=== PATIENT | male | born 1965 | race Caucasian/White ===

== ENCOUNTER 2016-04-30 16:24 | Emergency (ER) | payer OTHER ==
[2016-04-30 16:58] VITALS: BP 133/82; PULSE 81; RESP 18; TEMP 99.1; O2SAT 93
--- NOTE | 2016-04-30 18:40 | UCPHY ---
H & P Time Seen by Provider: 04/30/16 18:00 Patient Type: Established HPI/ROS: CHIEF COMPLAINT: rash. HISTORY OF PRESENT ILLNESS: this is a 50-year-old male has never had symptoms like this before. Several days ago he started developing a rash. It seems to start in the trunk and go down to extremities. However it is not responding well to Benadryl, he does believe that the topical cortisone did seem to help a little bit. He denies involvement of the palms or oral lesions. He did point out 1 area on the neck which he thought was a spot of the rash but it did appear to be a swollen gland the base of the nape of the neck at the hairline. No known exposure. No one similarly ill No new exposure to any of the following: Foods: Nuts, soy, berries, chocolate Medications: None. No antibiotics or SAL inhibitors or SAL blockers Detergents or soaps: none Prior, similar problem: None Prior allergy work up: Not applicable Home treatment: Benadryl and topical cortisone REVIEW OF SYSTEMS: General: No difficulty with syncope or near syncope or palpitations or feeling faint HEENT: No swelling to the tongue, lips, hypopharynx, or throat. No change in her voice Respiratory: No cough, no dyspnea. No pain or difficulty swallowing Cardiovascular: No chest pain, no palpitations. Gastrointestinal: No vomiting, no abdominal pain. Musculoskeletal: No peripheral edema or swelling. Smoking Status: Current some day smoker Physical Exam: General Appearance: Alert, no distress. Afebrile. Normal phonation. No respiratory distress. Eyes: Pupils equal and round no pallor or injection. No icterus ENT, Mouth: Mucous membranes moist. Pharynx without erythema or exudate. TM Clear. Neck: No adenopathy. Supple. No JVD. Trachea in midline. Respiratory: No signs of respiratory distress. Neurological: Ox3. No motor weakness. Moving well for the exam. Skin: Warm and dry, there is a rash most evident on the back over the shoulder area of particular over the spine to the scapula however there is some also seen on the lower extremities. There is 1 discrete area on the left anterior shoulder that is very compatible with a urticarial lesion rather than say a herald spot. Thereby do not think this is pityriasis rosea. One that upper trunk area actually looked more like discrete red spots rather than the 1 single area of urticarial lesion Musculoskeletal: No joint swelling. Extremities: No edema. Homans sign negative. No cords. Psychiatric: Normal affect Constitutional: Initial Vital Signs Temperature (C) 37.3 C 04/30/16 16:53 Heart Rate 81 04/30/16 16:53 Respiratory Rate 18 04/30/16 16:53 Blood Pressure 133/82 H 04/30/16 16:53 O2 Sat (%) 93 04/30/16 16:53 O2 Delivery Mode Room Air Allergies/Adverse Reactions: erythromycin base [Erythromycin Base] Allergy (Intermediate, Verified 04/30/16 16:52) Home Medications: Medication Instructions Recorded Famotidine [Pepcid 20 MG (*)] 40 mg PO BID PRN #20 tab 04/30/16 Hydroxyzine Pamoate [Vistaril] 25 - 75 mg PO Q6 PRN #30 capsule 04/30/16 predniSONE [Prednisone] 30 mg PO BID #30 tablet 04/30/16 Medical Decision Making ED Course/Re-evaluation: A lengthy discussion regarding avoiding heat, taking Atarax, as well as p.r.n. nonsedating antihistamines. He will be going on a course of prednisone Differential Diagnosis: Diagnostic considerations include, but are not limited to, the following: Urticaria, viral syndrome, drug eruption, allergic reaction Departure - Departure Disposition: Home, Routine, Self-Care Clinical Impression: Urticaria Condition: Good Instructions: Urticaria (ED) Additional Instructions: Avoid hot showers. Avoid overheating. It is okay to apply compresses of Aveeno oatmeal. But nothing else topically on the skin. He can use [id number] Zyrtec 10 mg, 2 tablets twice daily as a anti-itch as well with the Vistaril Referrals: JEANINE MONCADA [Primary Care Provider] - As per Instructions Stand Alone Forms: Work Excuse Prescriptions: Famotidine [Pepcid 20 MG (*)] 40 mg PO BID PRN #20 tab PRN Reason: Itching Hydroxyzine Pamoate [Vistaril] 25 - 75 mg PO Q6 PRN #30 capsule PRN Reason: Itching predniSONE [Prednisone] 30 mg PO BID #30 tablet - PQRS PQRS Measurement: NA
== END 2016-04-30 18:51 | disposition home or self-care (01) ==
LOC: CED 16:24
DX: L50.9 Urticaria, unspecified (principal); F17.200 Nicotine dependence, unspecified, uncomplicated
CPT/HCPCS: 99214-PO; G0463-PO